=== PATIENT | male | born 1980 | race African-American/Black ===

== ENCOUNTER 2021-07-29 03:38 | Emergency (ER) | payer SELFPAY ==
[2021-07-29] MEDS ORDERED: Morphine 4 MG/ML VIAL ONE (04:02)
[2021-07-29] MEDS ORDERED: Acetaminophen 500 MG TAB ONE (04:02)
[2021-07-29] MEDS ORDERED: Ondansetron PF 4 MG/2 ML Vial ONE (04:02)
[2021-07-29] MEDS ORDERED: Ampicillin/Sulbactam 3 GM in Sodium Chloride 0.9% 100 ML IVPB SCH (04:30)
[2021-07-29 04:32] LABS: #Basophils 0.1 thou/uL (0.0-0.2); #Lymphocytes 3.5 thou/uL (1.20-3.40); #Monocytes 0.9 thou/uL (0.11-0.59); #Neutrophils 6.2 thou/uL (1.40-6.50); %Basophils 1.2 % (0.0-1.0); %Eosinophils 0.5 % (0.0-10.0); %Lymphocytes 32.6 % (21.0-51.0); %Monocytes 8.6 % (0.0-10.0); %Neutrophils 57.2 % (42.0-75.0); Hemoglobin 16.5 g/dL (14.0-18.0); Mean Corpuscular HGB CONC 33.7 g/dL (32.0-36.0); Mean Corpuscular Hemoglobin 33.3 pg (27.0-31.0); Mean Corpuscular Volume 98.7 fL (78.0-98.0); Platelet Count 227 thou/uL (130-400); RBC Distribution Width 12.6 % (11.5-14.5); Red Blood Cell (RBC) Count 4.97 mill/uL (4.70-6.10); White Blood Cell (WBC) Count 10.8 thou/uL (4.8-10.8)
[2021-07-29] MEDS ORDERED: Dexamethasone 10 MG/ML VIAL ONE (06:47)
[2021-07-29] MEDS ORDERED: Iopamidol-370 76% 500 ML 1 ML ONE (10:25)
== END 2021-07-29 06:35 | disposition home or self-care (01) ==
LOC: ERS 03:38
DX: J03.90 Acute tonsillitis, unspecified (principal); I10 Essential (primary) hypertension; F17.210 Nicotine dependence, cigarettes, uncomplicated; Z79.899 Other long term (current) drug therapy
CPT/HCPCS: 36415; 70491; 85025; 87081; 87430; 96365; 96366; 96375; J0295; J1100; J2270; J2405; J3490; Q9967